=== PATIENT | male | born 1960 | race African-American/Black ===

== ENCOUNTER → 2021-06-16 | Outpatient (CLI) | payer MEDICARE, MEDICAID | END | disposition home or self-care (01) | LOC: NM 08:12 | PROVIDERS: ATTEND Internal Medicine Endocrinology, Diabetes & Metabolism | DX: E04.2 Nontoxic multinodular goiter (principal); E05.90 Thyrotoxicosis, unspecified without thyrotoxic crisis or storm | CPT/HCPCS: 78014; A9516 ==

== ENCOUNTER 2024-09-24 12:45 | Emergency (ER) | payer OTHER, MEDICAID ==
[~2024-09-24] VITALS: Ht 167.6 cm; Wt 66.0 kg
[2024-09-24 12:55] VITALS: O2SAT 98
[2024-09-24 14:06] LABS: BASOPHILS % 0.7 % (0.0-2.0); EOSINOPHILS % 1.6 % (0.0-5.0); HEMATOCRIT. 36.1 % (42.0-52.0); HEMOGLOBIN. 12.0 g/dL (14.0-18.0); LYMPHOCYTES % 23.3 % (20.0-50.0); MEAN PLATELET VOLUME 8.0 fl (7.4-10.4); MONOCYTES % 7.2 % (2.0-8.0); NEUTROPHILS % 67.2 % (40.0-76.0); PLATELET 195 x1000/uL (130-400); RED BLOOD CELL COUNT 4.02 mill/uL (4.7-6.1); RED CELL DISTRIBUTION WIDTH 12.0 % (11.6-14.6)
[2024-09-24 14:11] VITALS: TEMP 36.9
[2024-09-24 14:14] VITALS: TEMP 98.4
[2024-09-24 14:14] LABS: INR 1.0
[2024-09-24] MEDS: ACETAMINOPHEN 325MG TABLET PO SCH (14:14)
[2024-09-24 14:16] LABS: CREATININE 1.3 mg/dL (0.6-1.3)
[2024-09-24 14:17] LABS: TROPONIN I HIGH SENSITIVITY 9 ng/L (3.0-53); UREA NITROGEN BLOOD 12 mg/dL (9-23)
[2024-09-24 14:18] LABS: ASPARTATE AMINOTRANSFERASE 18 IU/L (<34)
[2024-09-24 14:19] LABS: BILIRUBIN DIRECT 0.2 mg/dL (<=3.0); BILIRUBIN TOTAL 0.5 mg/dL (0.1-1.0); PROTEIN TOTAL 6.4 g/dL (6.0-8.3)
[2024-09-24 16:53] LABS: TROPONIN I HIGH SENSITIVITY 13 ng/L (3.0-53)
[2024-09-24] MEDS ORDERED: SENN-215 MT (19:53)
[2024-09-24 20:03] VITALS: BP 128/77; PULSE 80; RESP 12; O2SAT 99
== END 2024-09-24 20:15 | disposition home or self-care (01) ==
LOC: ER 12:45
DX: R19.7 Diarrhea, unspecified (principal); F79 Unspecified intellectual disabilities; Z79.899 Other long term (current) drug therapy
CPT/HCPCS: 36415; 71045; 74176; 80048; 80076; 84484; 85025; 93005; 99285